=== PATIENT | female | born 1980 | race Hispanic/Latino ===

== ENCOUNTER 2020-08-24 11:16 | Emergency (ER) | payer OTHER, SELFPAY ==
[2020-08-24 11:35] VITALS: BP 122/75; PULSE 74; RESP 16; TEMP 36.6; O2SAT 98
--- NOTE | 2020-08-24 11:56 | ED.URI ---
HPI - URI/Sore Throat General Chief Complaint: Upper Respiratory Infection Stated Complaint: sore throat/headache Source: patient and RN notes reviewed Mode of arrival: ambulatory Limitations: no limitations History of Present Illness HPI Narrative: This is a 40-year-old A[place] female that presented to urgent care today complaining of stuffy nose, nasal and chest congestion, postnasal dripping, shortness of breath and fatigue. According to patient 3 days ago she developed all of the symptoms. According to patient while she was at work she had a facemask on and felt as if she could not breathe and like she was short of breath she noted that when she took her mask off she was able to breathe. Patient did note of having 1 episode of nausea and vomiting. The patient denies SOB, CP, palpitation, extremity numbness, lightheadedness, dizziness, constipation, diarrhea, chills, or fever. Patient noted that she did not take anything at home to relieve her pain. She did notify her doctor who informed her to come here to our urgent care. Patient does have a history of having sinus infections. MD elicited complaint: rhinorrhea, nasal congestion and sinus pain Related Data Home Medications Medication Instructions Recorded Confirmed insulin lispro [Humalog U-100 1.2 sliding scale dose SUBCUT DAILY 08/24/20 08/24/20 Insulin] Allergies Allergy/AdvReac Type Severity Reaction Status Date / Time No Known Allergies Allergy Unverified 08/24/20 11:43 Review of Systems Review of Systems: All systems reviewed & are unremarkable except as noted in HPI and below (10 point system review) Exam Narrative: Exam Narrative: GENERAL: This is a well-nourished, well-developed patient, in no apparent distress. HEAD: normocephalic, atraumatic. EYES: PERRL. Sclera clear/white. Vision is grossly intact. EARS: External ears normal, auditory canals clear and without drainage, TMs normal without perforation. Hearing grossly intact. NOSE: Edema erythema of the nasal mucosa, rhinorrhea. Unilateral maxillary sinus tenderness THROAT: Mucous membranes moist, posterior pharynx edematous with erythema. NECK: Neck supple, non-tender without lymphadenopathy, masses or thyromegaly. CARDIOVASCULAR: Regular rate and rhythm without murmurs, gallops, or rubs. RESPIRATORY: Clear to auscultation. Breath sounds equal bilaterally. No wheezes, rales, or rhonchi. GASTROINTESTINAL: Abdomen soft, non-tender, nondistended. Bowel sounds are active. No hepato-splenomegaly, or palpable masses. No guarding. SKIN: warm, intact with no suspicious lesions or rash, good texture and turgor. NEURO: awake, alert, and oriented to person, place and time. There were no obvious focal neurologic abnormalities. Steady gait EXTREMITIES: Normal range of motion. No edema. No calf tenderness. Negative Homans sign bilaterally. BACK: Nontender without deformity or crepitance. No flank tenderness. Course Course Emergency Course: Patient was discharged with antibiotics, Claritin, and Flonase Vital Signs Vital signs: Vital Signs Temperature 97.9 F 08/24/20 11:35 Pulse Rate 74 08/24/20 11:35 Respiratory Rate 16 08/24/20 11:35 Blood Pressure 122/75 08/24/20 11:35 Pulse Oximetry 98 08/24/20 11:35 Temperature 97.9 F 08/24/20 11:35 Pulse Rate 74 08/24/20 11:35 Respiratory Rate 16 08/24/20 11:35 Blood Pressure 122/75 08/24/20 11:35 Pulse Oximetry 98 08/24/20 11:35 MDM - URI/Sore Throat Differential Diagnosis Differential diagnosis: Likely upper respiratory infection, sinusitis, viral infection and pharyngitis Lab Data Labs: Strep Screen Presumptive Negative *(Reference Range: Negative)* Discharge Plan Discharge Clinical Impression: Sinusitis Qualifiers: Sinusitis location: frontal Chronicity: acute Recurrence: recurrent Qualified Code(s): J01.11 - Acute recurrent frontal sinusitis Patient Dispos
== END 2020-08-24 11:58 | disposition home or self-care (01) ==
PROVIDERS: Emergency Provider Nurse Practitioner; PCP Internal Medicine Endocrinology, Diabetes & Metabolism
DX: J01.11 Acute recurrent frontal sinusitis (principal); E11.9 Type 2 diabetes mellitus without complications; Z79.4 Long term (current) use of insulin; Z96.41 Presence of insulin pump (external) (internal)
CPT/HCPCS: 87081; 87880; 99213; G0463

== ENCOUNTER 2021-08-16 17:23 | Emergency (ER) | payer OTHER, SELFPAY ==
[2021-08-16] VITALS (11 sets, daily range): BP systolic 132–163; BP diastolic 80–107; PULSE 53–76; RESP 13–18; TEMP 36.3; O2SAT 100
--- NOTE | ~2021-08-16 | XR_ITS ---
EXAMINATION: XR chest 2V DATE: 08/16/2021 17:58 INDICATION: Chest pain. TECHNIQUE: Frontal and lateral views of the chest were obtained. COMPARISON: Chest 2 views 10/09/2015, CT abdomen and pelvis 12/01/2018 FINDINGS: The chest demonstrates clear lungs without pneumonia, pleural effusion, or pneumothorax. Th e heart size is normal. IMPRESSION: 1. No acute cardiopulmonary disease. Reviewed, dictated and finalized at location A. [employer]
--- NOTE | 2021-08-16 17:29 | ECG_ITS ---
Measurements Intervals [place] Rate: 75 P: 71 ND: 142 QRS: 33 QRSD: 92 T: 58 QT: 376 QTc: 421 Interpretive Statements SINUS RHYTHM VENTRICULAR PREMATURE COMPLEXES BORDERLINE ST ABNORMALITY- DIFFUSE LEADS BORDERLINE ECG Electronically Signed On 08-16-2021 19:15:20 [employer] ASSOR[employer] by Darron Oliva D.O.
[2021-08-16 17:50] LABS: Basophils Percent Auto 0.5 % (0.2-1.2); Eosinophils Percent Auto 0.5 % (0-4.4); Hematocrit 39.6 % (37.0-47.0); Hemoglobin 13.8 g/dL (12.0-15.0); Immature Granulocyte Absolute 0.02 K/mm3 (0.00-0.031); Immature Granulocyte Percent A 0.3 % (0-0.5); Lymphocytes Absolute Auto 1.66 K/mm3 (0.9-3.2); Lymphocytes Percent Auto 25.5 % (18.3-44.2); Mean Corpuscular HGB Conc 34.8 g/dl (32-36); Mean Corpuscular Hemoglobin 29.7 pg (26-34); Mean Corpuscular Volume 85.2 fl (80-100); Mean Platelet Volume 12.2 fl (7.4-10.4); Monocytes Absolute Auto 0.6 K/mm3 (0.1-0.6); Monocytes Percent Auto 9.5 % (2.6-8.5); Neutrophils Absolute Auto 4.2 K/mm3 (1.3-6.7); Neutrophils Percent Auto 63.7 % (45.5-73.1); Platelet Count Result 87 k/mm3 (150-375); Red Blood Count 4.65 M/mm3 (4.2-5.4); White Blood Count 6.5 K/mm3 (4.5-10.0)
[2021-08-16 18:00] LABS: INR 0.9; Prothrombin Time 12.5 Seconds (11.1-14.7)
[2021-08-16 18:01] LABS: Partial Thromboplastin Time 27.5 SECONDS (22.3-36.8)
[2021-08-16 18:02] LABS: Alanine Aminotransferase 26 U/L (4-35); Albumin Level 4.5 g/dL (3.5-5.1); Alkaline Phosphatase 71 U/L (38-126); Anion Gap 3 mmol/L (8-16); Aspartate Amino Transferase 30 U/L (14-36); Bilirubin,Total 0.6 mg/dL (0.2-1.3); Blood Urea Nitrogen 12 mg/dL (7-17); Calcium 9.3 mg/dL (8.4-10.2); Carbon Dioxide 32 mmol/L (22-30); Chloride 93 mmol/L (98-107); Estimated CRCL calculation 132 ml/min; Estimated Glomerular Filt Rate > 60; Glucose 194 mg/dL (65-110); Lipase 56 U/L (23-300); Potassium 3.8 mmol/L (3.4-5.0); Sodium 128 mmol/L (137-145)
[2021-08-16 18:13] LABS: Troponin I < 0.012 ng/mL (0.000-0.034)
[2021-08-16 22:19] LABS: Troponin I < 0.012 ng/mL (0.000-0.034)
--- NOTE | 2021-08-16 22:23 | ED.GENADULT ---
HPI - General Adult General Chief complaint: Chest Pain Stated complaint: chest pain, sob Time Seen by Provider: 08/16/21 22:04 History of Present Illness HPI narrative: Patient is a 41-year-old female who presents the emergency department with chief complaint of right-sided chest discomfort. Patient states that she has been feeling some palpitations for some time and then noticed that she had a somewhat sharp feeling on the right side of her chest the patient states is worse with inspiration reports has been under immense amount of stress and reports that it is exacerbated by wearing a mask at work. The patient states that she had no diaphoresis reports no prior history of cardiac disease. Related Data Home Medications Medication Instructions Recorded Confirmed insulin lispro [Humalog U-100 08/16/21 Insulin] Allergies Allergy/AdvReac Type Severity Reaction Status Date / Time No Known Allergies Allergy Unverified 08/24/20 11:43 Review of Systems Review of Systems: A 10 system review of systems was completed on the patient and is negative except for what is stated in the HPI. Nursing and ancillary documentation was reviewed. Exam Narrative: GENERAL: Well-appearing, well-nourished, and in no acute distress. HEAD: Normocephalic, atraumatic. EYES: PERRLA and EOMI. ENT: Nares clear, no rhinorrhea or epistaxis. Mucous membranes moist. NECK: Supple. CHEST: Clear to auscultation. No respiratory distress. HEART: Regular rate and rhythm. No murmur heard. Normal peripheral pulses. ABDOMEN: Soft, nontender, nondistended, normal active bowel sounds. EXTREMITIES: Normal range of motion. No edema. SKIN: Warm, dry, no rash. NEURO: No focal deficits. Alert and oriented x3. PSYCH: Normal mood and affect. Course Course Emergency Course: EKG is sinus rhythm rate of 75 with occasional PVCs Vital Signs Vital signs: Vital Signs Temperature 36.3 C L 08/16/21 17:38 Pulse Rate 71 08/16/21 17:38 Respiratory Rate 18 08/16/21 17:38 Blood Pressure 163/102 H 08/16/21 17:38 Pulse Oximetry 100 08/16/21 17:38 Temperature 36.3 C L 08/16/21 17:38 Pulse Rate 61 08/16/21 22:31 Respiratory Rate 14 08/16/21 22:31 Blood Pressure 132/80 08/16/21 22:31 Pulse Oximetry 100 08/16/21 22:31 Medical Decision Making Vital Signs Vital Signs: Vital Signs Temperature 36.3 C L 08/16/21 17:38 Pulse Rate 71 08/16/21 17:38 Respiratory Rate 18 08/16/21 17:38 Blood Pressure 163/102 H 08/16/21 17:38 Pulse Oximetry 100 08/16/21 17:38 Temperature 36.3 C L 08/16/21 17:38 Pulse Rate 61 08/16/21 22:31 Respiratory Rate 14 08/16/21 22:31 Blood Pressure 132/80 08/16/21 22:31 Pulse Oximetry 100 08/16/21 22:31 Lab Data Result diagrams: 08/16/21 17:41 08/16/21 17:41 Labs: Lab Results 08/16/21 08/16/21 08/16/21 Range/Units 17:41 17:41 17:41 WBC 6.5 (4.5-10.0) K/mm3 RBC 4.65 (4.2-5.4) M/mm3 Hgb 13.8 (12.0-15.0) g/dL Hct 39.6 (37.0-47.0) % MCV 85.2 (80-100) fl MCH 29.7 (26-34) pg MCHC 34.8 (32-36) g/dl RDW 13.0 (11.5-14.5) % Plt Count 87 L (150-375) k/mm3 MPV 12.2 H (7.4-10.4) fl Immature Gran % (Auto) 0.3 (0-0.5) % Neut % (Auto) 63.7 (45.5-73.1) % Lymph % (Auto) 25.5 (18.3-44.2) % [place] % (Auto) 9.5 H (2.6-8.5) % Eos % (Auto) 0.5 (0-4.4) % Baso % (Auto) 0.5 (0.2-1.2) % Lymph # (Auto) 1.66 (0.9-3.2) K/mm3 [place] # (Auto) 0.6 (0.1-0.6) K/mm3 Eos # (Auto) 0.0 (0-0.3) K/mm3 Baso # (Auto) 0.0 (0.0-0.1) K/mm3 Abs Immat Gran (auto) 0.02 (0.00-0.031) K/mm3 Absolute Neuts (auto) 4.2 (1.3-6.7) K/mm3 Absolute Nucleated RBC 0.0 (0.0-0.012) K/mm3 Nucleated RBC % 0.0 (0.0-0.2) % PT 12.5 (11.1-14.7) Seconds INR 0.9 APTT 27.5 (22.3-36.8) SECONDS Sodium 128 L (137-145) mmol/L Potassium 3.8 (3.4-5.0) mmol/L Chloride
[2021-08-17] VITALS: BP 114/67; PULSE 62; RESP 16; O2SAT 100
== END 2021-08-17 00:02 | disposition home or self-care (01) ==
LOC: ANHED 22:58
PROVIDERS: Emergency Medicine; Emergency Provider Emergency Medicine; PCP Family Medicine
DX: I49.3 Ventricular premature depolarization (principal); R07.89 Other chest pain; R00.2 Palpitations
CPT/HCPCS: 36415; 71046; 80053; 83690; 84484; 85025; 85610; 85730; 93005; 99284

== ENCOUNTER 2024-07-10 08:15 | Outpatient (CLI) | payer OTHER, SELFPAY ==
--- NOTE | ~2024-07-10 | XR_ITS ---
XR ankle RT 2V DATE: 07/10/2024 08:58 INDICATION: Right ankle pain. Multiple joint pain. TECHNIQUE: AP and lateral views COMPARISON: None FINDINGS: No fracture or dislocation the ankle or disruption of the ankle mortise. Mild to moderate plantar calcaneal enthesopathy without associated erosive change or periostitis. IMPRESSION: Plantar calcaneal enthesopathy Reviewed, dictated and finalized at location A.
--- NOTE | ~2024-07-10 | XR_ITS ---
XR knee LT 3V DATE: 07/10/2024 08:58 INDICATION: Left knee pain. Multiple joint pain. TECHNIQUE: Standing AP and lateral views. [place] view. COMPARISON: None FINDINGS: There is slight periarticular spurring of the patella. There is mild loss of medial compartment joint space height. No fracture or dislocation or joint effusion. No radiopaque interarticular loose body or chondrocalci nosis. No periosteal reaction or bone destruction. IMPRESSION: Mild osteoarthritis at the patellofemoral and medial compartments Reviewed, dictated and finalized at location A.
--- NOTE | ~2024-07-10 | XR_ITS ---
XR knee RT 3V DATE: 07/10/2024 08:58 INDICATION: Right knee pain. Multiple joint pain. TECHNIQUE: AP and lateral views COMPARISON: None FINDINGS: There is slight periarticular spurring at the patellofemoral, medial and lateral compartmen ts but joint spaces appear well preserved. No fracture or dislocation or joint effusion. No radiopaque intra-articular loose body or chondrocalc inosis. No periosteal reaction or bone destruction. IMPRESSION: Mild tricompartment osteoarthritis Reviewed, dictated and finalized at location A.
--- NOTE | ~2024-07-10 | XR_ITS ---
XR foot LT 2V DATE: 07/10/2024 08:58 INDICATION: Left foot pain. Multiple joint pain. TECHNIQUE: AP and lateral views COMPARISON: None FINDINGS: Slight plantar calcaneal enthesopathy. Mild hallux valgus and bunion deformity. There are mild osteoarthritis of the first metatarsophalange al joint. No fracture, dislocation, periosteal reaction or bone destruction or erosive change. IMPRESSION: Slight plantar calcaneal enthesopathy Mild hallux valgus and bunion deformity Mild osteoarthritis of first metatarsophalangeal joint Reviewed, dictated and finalized at location A.
--- NOTE | ~2024-07-10 | XR_ITS ---
XR ankle LT 2V DATE: 07/10/2024 08:58 INDICATION: Left ankle pain. Multiple joint pain. TECHNIQUE: AP and lateral views COMPARISON: None FINDINGS: No fracture or dislocation of the ankle or disruption of the ankle mortise. No periosteal r eaction or bone destruction. Slight plantar calcaneal enthesopathy. IMPRESSION: Slight plantar calcaneal enthesopathy Reviewed, dictated and finalized at location A.
--- NOTE | ~2024-07-10 | XR_ITS ---
XR foot RT 2V DATE: 07/10/2024 08:58 INDICATION: Right foot pain. Multiple joint pain. TECHNIQUE: AP and lateral views COMPARISON: None FINDINGS: Mild plantar calcaneal enthesopathy without associated erosive change or periostitis. Mild hallux valgus and bunion deformity. Mild osteoarthritis at the first metatarsophalangeal joint. No fracture, dislocation, periosteal reaction or bone destruction. IMPRESSION: Mild plantar calcaneal enthesopathy Mild hallux valgus and bunion deformity Mild first metatarsophalangeal joint osteoarthritis Reviewed, dictated and finalized at location A.
== END 2024-07-10 08:16 | disposition home or self-care (01) ==
PROVIDERS: PCP Internal Medicine Endocrinology, Diabetes & Metabolism; Visit Provider Internal Medicine
DX: M25.50 Pain in unspecified joint (principal); R53.81 Other malaise; M79.10 Myalgia, unspecified site; M17.0 Bilateral primary osteoarthritis of knee; M77.32 Calcaneal spur, left foot; M77.31 Calcaneal spur, right foot; M20.12 Hallux valgus (acquired), left foot; M20.11 Hallux valgus (acquired), right foot; M21.612 Bunion of left foot; M21.611 Bunion of right foot; M19.072 Primary osteoarthritis, left ankle and foot; M19.071 Primary osteoarthritis, right ankle and foot
CPT/HCPCS: 73562; 73600; 73620